=== PATIENT | female | born 1965 | race Caucasian/White ===

== ENCOUNTER 2019-03-26 21:10 | Emergency (ER) | payer MEDICARE ==
--- NOTE | 2019-03-26 21:14 | Emergency Department Record ---
History of Present Illness - General Stated Complaint: BACK PAIN Time Seen by Provider: 03/26/19 21:12 Source: Patient, Family Mode of Arrival: Ambulatory Limitations: No limitations - History of Present Illness Initial Comments: 53 yo female presents with back pain. She woke up two weeks ago and felt a pain over the upper back and right shoulder blade. The pain is constant. It hurts to lift the arm, change positions, lift objects with the right arm. No chest pain, shortness of breath, cough. The pain is better if still or not using the right upper extremity. No other recent changes in her health. She has had prior cervical spine surgery. No changes in her chronic neck pain or radiation down the arm. MD Complaint: Back pain -: Week(s) (2) Similar Symptoms Previously: Yes Place: Home Radiation: None Severity: Moderate Quality: Aching, Sharp, Other ("spasm") Consistency: Constant Improves With: Other (remaining still) Worsens With: Movement, Other (palpation, certain arm movememnts) Associated Symptoms: Denies other symptoms - Related Data Home Medications Medication Instructions Recorded Confirmed Last Taken Cetirizine HCl [Zyrtec] 1 tab PO DAILY 03/26/19 03/26/19 03/26/19 Duloxetine HCl [Cymbalta] 60 mg PO BID 03/26/19 03/26/19 03/26/19 Gabapentin [Neurontin] 800 mg PO TID 03/26/19 03/26/19 03/26/19 Hydroxychloroquine Sulfate 200 mg PO DAILY 03/26/19 03/26/19 03/26/19 [Plaquenil] Losartan Potassium 1 tab PO DAILY 03/26/19 03/26/19 03/26/19 Metformin HCl 1 tab PO BID 03/26/19 03/26/19 03/26/19 Ondansetron HCl [Zofran] 1 tab PO ASDIR 03/26/19 03/26/19 03/26/19 Sumatriptan Succinate [Imitrex] 100 mg PO ASDIR 03/26/19 03/26/19 03/26/19 Topiramate [Topamax] 200 mg PO DAILY 03/26/19 03/26/19 03/26/19 Trazodone HCl 100 mg PO DAILY 03/26/19 03/26/19 03/26/19 Previous Rx's Medication Instructions Recorded Cyclobenzaprine HCl [Flexeril] 10 mg PO BID #20 tab 03/26/19 Allergies Allergy/AdvReac Type Severity Reaction Status Date / Time No Known Drug Allergies Allergy Verified 03/26/19 21:24 Review of Systems Constitutional: Denies: Chills, Fever, Malaise, Weakness Eyes: Denies: Eye discharge, Eye pain, Photophobia, Vision change ENT: Denies: Congestion, Throat pain Respiratory: Denies: Cough, Dyspnea Cardiovascular: Denies: Chest pain, Palpitations, Syncope Endocrine: Denies: Fatigue Gastrointestinal: Denies: Abdominal pain, Diarrhea, Nausea, Vomiting Genitourinary: Denies: Dysuria, Frequency, Hematuria, Urgency Musculoskeletal: Reports: As per HPI, Back pain, Myalgia Skin: Denies: Bruising, Change in color, Rash Neurological: Denies: Abnormal gait, Headache, Numbness, Paresthesias, Tingling, Tremors, Vertigo, Weakness Psychiatric: Denies: Anxiety Hematological/Lymphatic: Denies: Easy bleeding, Easy bruising, Swollen glands Physical Exam - General General Appearance: Alert, Oriented x3, Cooperative, No acute distress Limitations: No limitations - Head Head exam: Atraumatic, Normal inspection - Eye Eye exam: Normal appearance, PERRL. negative: Conjunctival injection, Scleral icterus - ENT ENT exam: Normal exam, Mucous membranes moist Ear exam: Normal external inspection Nasal Exam: Normal inspection Mouth exam: Normal external inspection - Neck Neck exam: Normal inspection, Full ROM. negative: Lymphadenopathy, Tenderness - Respiratory Respiratory exam: Normal lung sounds bilaterally. negative: Rhonchi, Stridor, Wheezes - Cardiovascular Cardiovascular Exam: Regular rate, Normal rhythm, Normal heart sounds. negative: Diastolic murmur, Systolic murmur Peripheral Pulses: 2+: Radial (R), Radial (L) - GI/Abdominal GI/Abdominal exam: Soft. negative: Distended, Guarding, Pulsatile mass, Tendern ess - Rectal Rectal exam: Deferred - exam: Deferred - Extremities Extremities exam: Normal inspection, Full ROM. negative: Calf tenderness, Pedal edema, Tenderness - Back Back exam: Reports: Normal inspection, Muscle spasm, Paraspinal tenderness, Tenderness. Denies: Rash noted Image of Body Front/Back: 1 - tender to palpation, muscle spasm, pain in this area with arm abduction, pain with arm movement against resistance - Neurological Neurological exam: Alert, Normal gait, Oriented X3. negative: Abnormal gait, Motor sensory deficit - Psychiatric Psychiatric exam: Normal affect, Normal mood. negative: Agitated, Anxious - Skin Skin exam: Dry, Intact, Normal color, Warm Course - Reevaluation(s) Reevaluation #1: 03/26/19 22:44 On recheck the patient is doing much better Her pain is well controlled. Her ROM without pain is improved as well The XR is negative for acute process We discussed home care, reasons to return and close follow up if the pain continues Disposition Disposition: Discharge Clinical Impression: Thoracic back pain Qualifiers: Chronicity: acute Back pain laterality: right Qualified Code(s): M54.6 - Pain in thoracic spine Disposition: Home, Self-Care Condition: (1) Good Instructions: Thoracic Back Strain (ED) Additional Instructions: Review this ER visit and the tests performed with your family doctor Call your doctor for the next available follow up appointment Return to the ER for a recheck immediately if worse, any new concerns or questions Take the prescriptions provided as directed Prescriptions: Cyclobenzaprine HCl [Flexeril] 10 mg PO BID #20 tab Time of Disposition: 22:44 Quality - Quality Measures Quality Measures: N/A - Blood Pressure Screening Does Patient Have Any of the Following: No Blood Pressure Classification: Pre-Hypertensive BP Reading Systolic Measurement: 129 Diastolic Measurement: 84 Screening for High Blood Pressure: < Pre-Hypertensive BP, F/U Documented > [G8950] Pre-Hypertensive Follow-up Interventions: Referral to alternative/primary care provider.
[2019-03-26] MEDS ORDERED: ORPHENADRINE CITRATE 60MG/2ML VIAL IM ONE (21:20)
[2019-03-26] MEDS ORDERED: HYDROCODONE/APAP 5/325MG TABLET PO ONE (21:20)
[2019-03-26] MEDS ORDERED: KETOROLAC 30 MG/ML VIAL IM ONE (21:20)
--- NOTE | 2019-03-26 22:33 | RADIOLOGY REPORT ---
EXAMINATION: THORACIC SPINE EXAM DATE: 03/26/2019 10:21 PM TECHNIQUE: 3 views of the thoracic spine INDICATION: thoracic pain COMPARISON: None ENCOUNTER: Initial FINDINGS: Normal anatomic alignment. Vertebral body heights are preserved without evidence of acute fracture. Intervertebral disc spaces are normal. IMPRESSION: Unremarkable examination. Dictated by: Ochoa Kendrick MD on 03/26/2019 10:29 PM. .
== END 2019-03-26 22:50 | disposition home or self-care (01) ==
LOC: ER 21:10
DX: M54.6 Pain in thoracic spine (principal)
CPT/HCPCS: 72072; 96372; 99284; J1885; J2360

== ENCOUNTER 2019-04-20 18:25 | Emergency (ER) | payer MEDICARE ==
[2019-04-20] MEDS ORDERED: DIPHENHYDRAMINE HCL 50 MG/ML VIAL IVP ONE (18:29)
[2019-04-20] MEDS ORDERED: KETOROLAC 30 MG/ML VIAL IVP ONE (18:29)
[2019-04-20] MEDS ORDERED: METOCLOPRAMIDE HCL 10 MG/2 ML VIAL IVP ONE (18:29)
[2019-04-20] MEDS ORDERED: 0.9 % SODIUM CHLORIDE 1000ML 1,000 ML IV SCH (18:30)
--- NOTE | 2019-04-20 18:38 | Emergency Department Record ---
History of Present Illness - General Stated Complaint: MIGRAINE Time Seen by Provider: 04/20/19 18:28 Source: Patient Mode of Arrival: Ambulatory Limitations: No limitations - History of Present Illness Initial Comments: 53 yo female presents to ED for evaluation of a "migraine headache", reports that her headache symptoms began this morning. Patient reports taking both Imitrex and Sumatriptan for her headache symptoms without improvement,. Patient reports a history of frequent migraine-type headaches that occur 1-2x weekly. Patient denies fevers, chills, or neck stiffness symptoms. Patient also denies use of anticoagulation medications are her baseline. MD Complaint: Headache Onset/Timin -: Days(s) Onset Description: Awoke with symptoms Location: Diffuse Severity: Severe Quality: Throbbing, Similar to previous headaches Consistency: Constant Improves With: Nothing Worsens With: None Associated Symptoms: Photophobia Treatments Prior to Arrival: Migraine medication - Related Data Previous Rx's Medication Instructions Recorded Cyclobenzaprine HCl [Flexeril] 10 mg PO BID #20 tab 03/26/19 Allergies Allergy/AdvReac Type Severity Reaction Status Date / Time erythromycin base Allergy RASH Verified 04/20/19 18:35 [id number] Reductase Allergy JOINT ACHES Verified 04/20/19 18:35 Inhibitor Review of Systems Constitutional: Denies: Chills, Fever, Malaise, Night sweats Eyes: Reports: Photophobia. Denies: Eye discharge, Eye pain ENT: Denies: Congestion, Ear pain, Epistaxis Respiratory: Denies: Cough, Dyspnea Cardiovascular: Denies: Arrhythmia, Chest pain, Dyspnea on exertion, Palpitations Endocrine: Denies: Fatigue Gastrointestinal: Denies: Abdominal pain, Nausea, Vomiting Genitourinary: Denies: Incontinence, Retention Musculoskeletal: Denies: Arthralgia, Back pain Skin: Denies: Bruising, Change in color Neurological: Reports: Headache. Denies: Abnormal gait, Confusion, Tingling, Tremors Psychiatric: Denies: Anxiety Hematological/Lymphatic: Denies: Anemia, Blood Clots Past Medical History - SOCIAL HISTORY Smoking Status: Never smoker Drug Use: None - RESPIRATORY Hx Respiratory Disorders: Yes Hx Asthma: Yes - CARDIOVASCULAR Hx Cardio Disorders: Yes Hx Hypertension: Yes - NEURO Hx Neuro Disorders: Yes Hx Headaches: Yes - GI Hx GI Disorders: No Comment:: kamran - Hx Genitourinary Disorders: Yes Hx UTI: Yes - ENDOCRINE Hx Endocrine Disorders: Yes Hx Diabetes: Yes - MUSCULOSKELETAL Hx Musculoskeletal Disorders: Yes - PSYCH Hx Psych Problems: Yes Hx Anxiety: Yes Hx Depression: Yes Physical Exam - General General Appearance: Alert, Oriented x3, Cooperative, Moderate distress Limitations: No limitations - Head Head exam: Atraumatic, Normocephalic, Normal inspection Head exam detail: negative: Abrasion, Contusion, Romero's sign, General tenderness, Hematoma, Laceration - Eye Eye exam: Normal appearance. negative: Conjunctival injection, Periorbital swelling, Periorbital tenderness, Scleral icterus - ENT Ear exam: negative: Auricular hematoma, Auricular trauma Nasal Exam: negative: Active bleeding, Discharge, Dried blood, Foreign body Mouth exam: negative: Drooling, Laceration, Muffled voice, Tongue elevation - Neck Neck exam: Normal inspection. negative: Meningismus, Tenderness - Respiratory Respiratory exam: Normal lung sounds bilaterally. negative: Respiratory distress, Rhonchi, Stridor, Wheezes - Cardiovascular Cardiovascular Exam: Regular rate, Normal rhythm, Normal heart sounds - GI/Abdominal GI/Abdominal exam: Soft. negative: Distended, Rebound, Rigid, Tenderness - Rectal Rectal exam: Deferred - exam: Deferred - Extremities Extremities exam: Normal inspection. negative: Pedal edema, Tenderness - Back Back exam: Denies: CVA tenderness (R), CVA tenderness (L) - Neurological Neurological exam: Alert, Normal gait, Oriented X3 - Psychiatric Psychiatric exam: Anxious - Skin Skin exam: Normal color. negative: Abrasion Type of lesion: negative: abrasion Course - Reevaluation(s) Reevaluation #1: 04/20/19 19:39 Patient was reassessed following completion of the administered migraine cocktail Patient reports that her headache symptoms are significantly improved (3/10 currently) and she is feeling much improved. Patient appears stable for discharge at this time. Disposition Disposition: Discharge Clinical Impression: Acute headache Qualifiers: Headache type: unspecified Intractability: not intractable Qualified Code(s): R51 - Headache Disposition: Home, Self-Care Condition: (2) Stable Instructions: Migraine Headache (ED) Additional Instructions: Return to ED if your symptoms worsen or if you have any concerns. Follow-up with your family doctor in 3-5 days as directed. Time of Disposition: 19:40 Quality - Quality Measures Quality Measures: N/A - Blood Pressure Screening Does Patient Have Any of the Following: No Blood Pressure Classification: Hypertensive Reading Systolic Measurement: 165 Diastolic Measurement: 129 Screening for High Blood Pressure: < First Hypertensive BP, F/U Documented > [G8950] First Hypertensive Follow-up Interventions: Referral to alternative/primary care provider.
== END 2019-04-20 19:55 | disposition home or self-care (01) ==
LOC: ER 18:25
DX: G43.909 Migraine, unspecified, not intractable, without status migrainosus (principal); H53.149 Visual discomfort, unspecified; I10 Essential (primary) hypertension
CPT/HCPCS: 96374; 96375; 99284; J1200; J1885; J2765; J7030